=== PATIENT | female | born 1985 | race Caucasian/White ===

== ENCOUNTER 2019-08-06 15:36 | Emergency (ER) | payer SELFPAY ==
[~2019-08-06] VITALS: Ht 162.6 cm; Wt 59.4 kg
[2019-08-06] MEDS ORDERED: ONDANSETRON 4MG ODT PO STA (16:23)
[2019-08-06] MEDS ORDERED: IBUPROFEN 600MG TABLET PO ONE (16:30)
[2019-08-06 16:50] LABS: CLARITY URINE CLOUDY (CLEAR); COLOR URINE YELLOW (YELLOW); KETONES URINE NEGATIVE (NEGATIVE); LEUKOCYTE ESTERASE URINE TRACE (NEGATIVE); NITRITE URINE NEGATIVE (NEGATIVE); OCCULT BLOOD URINE NEGATIVE (NEGATIVE); PH URINE 6.5 (4.5-8.0); PROTEIN URINE NEGATIVE (NEGATIVE); SPECIFIC GRAVITY URINE 1.006 (1.005-1.030); UROBILINOGEN URINE 0.2 E.U./dL (0.2-1.0)
[2019-08-06 16:52] LABS: BASOPHILS % 0.1 % (0.0-2.0); EOSINOPHILS % 0.7 % (0.0-5.0); HEMOGLOBIN. 13.6 g/dL (12.0-16.0); LYMPHOCYTES % 9.4 % (20.0-50.0); MEAN CORPUSCULAR HEMOGLOBIN 30.3 pg (28.0-32.0); MEAN PLATELET VOLUME 7.3 fl (7.4-10.4); MONOCYTES % 4.2 % (2.0-8.0); NEUTROPHILS % 85.6 % (40.0-76.0); PLATELET 289 x1000/uL (130-400); RED BLOOD CELL COUNT 4.49 mill/uL (4.2-5.4); RED CELL DISTRIBUTION WIDTH 14.1 % (11.6-14.6)
[2019-08-06 16:56] LABS: CHLORIDE 105 mEq/L (98-107)
[2019-08-06 16:57] LABS: PROTHROMBIN TIME 10.7 sec (9.6-11.0)
[2019-08-06 22:24] VITALS: BP 110/74
== END 2019-08-06 22:25 | disposition home or self-care (01) ==
LOC: ER 15:36
DX: A05.9 Bacterial foodborne intoxication, unspecified (principal)
CPT/HCPCS: 36415; 80053; 81003; 81025; 83690; 85025; 85610; 99283; Q0162